=== PATIENT | female | born 1970 | race Caucasian/White ===

== ENCOUNTER 2021-05-15 09:06 | Day surgery (SDC) | payer BC, OTHER ==
[~2021-05-15] VITALS: Ht 160 cm; Wt 63.1 kg
[~2021-05-15 09:06] MED LIST: ESTRADIOL1 MG; MOBIC15 MG; PROG100
--- NOTE | 2021-05-15 10:53 | NUR ---
05/15/21 1053 Clarissa Carter PT NOTIFIED THAT PREVIOUS CASE IS RUNNING LONG. PT DENIES NEEDS, CALL LIGHT IN REACH. WILL CONTINUE TO UPDATE
== END 2021-05-15 12:23 | disposition home or self-care (01) ==
LOC: ORSCSDS 09:06
PROVIDERS: Internal Medicine Gastroenterology
PROC: 0DJD8ZZ Inspection of Lower Intestinal Tract, Via Natural or Artificial Opening Endoscopic (ICD-10-PCS; principal; 2021-05-15 10:30)
DX: Z12.11 Encounter for screening for malignant neoplasm of colon (principal); Z87.891 Personal history of nicotine dependence; Z79.899 Other long term (current) drug therapy
CPT/HCPCS: J2704; J7120